=== PATIENT | male | born 1945 | race Caucasian/White ===

== ENCOUNTER 2017-04-23 14:54 | Inpatient (IN) | payer MEDICARE ==
[~2017-04-23] VITALS: Ht 182.9 cm; Wt 116.6 kg
[2017-04-23] MEDS ORDERED: TYLENOL325 MG PO (17:18)
[2017-04-23] MEDS ORDERED: COSOPT OCUMETER10 ML OPHTHALMIC (17:21)
[2017-04-23] MEDS ORDERED: ENOXAPARIN40 MG/0.1 SUBQ (17:22)
[2017-04-23] MEDS ORDERED: IRON325 PO (17:23)
[2017-04-23] MEDS ORDERED: FOLIC ACID1 MG PO (17:23)
[2017-04-23] MEDS ORDERED: DUONEB 2.5-0.5 M3 ML INH (17:25)
[2017-04-23] MEDS ORDERED: XALATAN2.5 ML OPHTHALMIC (17:26)
[2017-04-23] MEDS ORDERED: PROTONIX40 M1 PO (17:26)
[2017-04-23 19:40] VITALS: BP 154/58
[2017-04-24 04:31] LABS: HEMATOCRIT 22.2 % (42.0-52.0); HEMOGLOBIN 7.3 gm/dL (14.0-18.0); MCH 26.1 pg (26.0-34.0); MCHC 32.8 g/dL (28.0-37.0); MCV 79.7 fL (80.0-100.0); MPV 8.9 fl. (7.2-11.1); RBC 2.78 mil/uL (4.50-6.00); RDW-CV 19.9 % (10.5-14.5); WBC 3.2 thou/uL (4.0-11.0)
[2017-04-24 04:44] LABS: ALBUMIN 2.3 g/dL (3.4-5.0); CALCIUM 8.4 mg/dL (8.5-10.1); CREATININE 1.3 mg/dL (0.6-1.3); POTASSIUM 3.6 mmol/L (3.5-5.1); TOTAL BILIRUBIN 0.3 mg/dL (<0.1-1.0); TOTAL PROTEIN 6.4 g/dL (6.4-8.2)
[2017-04-24 07:53] VITALS: BP 136/44
[2017-04-24 20:23] VITALS: BP 149/45
[2017-04-25 05:23] LABS: HEMATOCRIT 21.7 % (42.0-52.0); HEMOGLOBIN 7.1 gm/dL (14.0-18.0); MCH 26.3 pg (26.0-34.0); MCHC 32.7 g/dL (28.0-37.0); MCV 80.2 fL (80.0-100.0); MPV 9.1 fl. (7.2-11.1); RBC 2.71 mil/uL (4.50-6.00); RDW-CV 20.5 % (10.5-14.5); WBC 3.4 thou/uL (4.0-11.0)
[2017-04-25 05:37] LABS: CALCIUM 8.4 mg/dL (8.5-10.1); CREATININE 1.3 mg/dL (0.6-1.3); MAGNESIUM 1.7 mg/dL (1.8-2.4); POTASSIUM 3.7 mmol/L (3.5-5.1)
[2017-04-25 07:35] VITALS: BP 128/52
[2017-04-25 20:12] VITALS: BP 133/94
[2017-04-25 22:15] VITALS: BP 124/44; BP 129/48; BP 137/41; BP 158/44
[2017-04-26 07:30] VITALS: BP 130/44
[2017-04-26 14:43] LABS: ABSOLUTE EOSINOPHILS 0.2 thou/uL (0.0-0.7); ABSOLUTE LYMPHOCYTES 1.2 thou/uL (0.8-5.3); ABSOLUTE MONOCYTES 0.4 thou/uL (0.0-1.2); ABSOLUTE NEUTROPHILS 2.9 thou/uL (1.6-8.1); BASOPHILS 0.7 %; EOSINOPHILS 4.8 %; HEMATOCRIT 29.4 % (42.0-52.0); LYMPHOCYTES 24.4 %; MCH 26.5 pg (26.0-34.0); MCHC 32.6 g/dL (28.0-37.0); MCV 81.3 fL (80.0-100.0); MONOCYTES 7.5 %; MPV 8.8 fl. (7.2-11.1); NUCLEATED RBCS 0 /100WBC; POLYS 62.6 %; RBC 3.61 mil/uL (4.50-6.00); RDW-CV 20.4 % (10.5-14.5); WBC 4.7 thou/uL (4.0-11.0)
[2017-04-26 14:44] LABS: HEMOGLOBIN 9.6 gm/dL (14.0-18.0)
[2017-04-26 14:45] LABS: PLATELET COUNT* 295 thou/uL (150-400)
[2017-04-26 14:58] LABS: CREATININE 1.5 mg/dL (0.6-1.3); POTASSIUM 4.4 mmol/L (3.5-5.1)
[2017-04-26 15:26] LABS: ANISOCYTOSIS 1+; OVALOCYTES Occasional
[2017-04-26 15:27] LABS: PLATELET ESTIMATE ADEQUATE
[2017-04-26 20:09] VITALS: BP 99/59
[2017-04-27 07:53] VITALS: BP 121/49
[2017-04-27 20:21] VITALS: BP 132/60; BP 77/43
[2017-04-28 04:05] LABS: HEMATOCRIT 26.7 % (42.0-52.0); MCH 27.3 pg (26.0-34.0); MCHC 33.5 g/dL (28.0-37.0); MCV 81.6 fL (80.0-100.0); RBC 3.28 mil/uL (4.50-6.00); RDW-CV 20.8 % (10.5-14.5); WBC 4.3 thou/uL (4.0-11.0)
[2017-04-28 04:10] LABS: CALCIUM 8.6 mg/dL (8.5-10.1); CREATININE 1.5 mg/dL (0.6-1.3); POTASSIUM 3.9 mmol/L (3.5-5.1)
[2017-04-28 08:53] VITALS: BP 123/45
[2017-04-28 19:30] VITALS: BP 132/55
[2017-04-28 20:00] VITALS: BP 132/55
[2017-04-28 21:38] LABS: INFLUENZA A ANTIGEN None Detected (None Detect); INFLUENZA B ANTIGEN None Detected (None Detect)
[2017-04-28 23:45] LABS: URINE BILIRUBIN NEGATIVE (Negative); URINE BLOOD NEGATIVE (Negative); URINE CLARITY CLEAR; URINE COLOR YELLOW; URINE GLUCOSE-RANDOM NEGATIVE (Negative); URINE KETONES NEGATIVE (Negative); URINE LEUKOCYTES-REFLEX NEGATIVE (Negative); URINE NITRITE-REFLEX NEGATIVE (Negative); URINE PROTEIN 1+ (Negative); URINE UROBILINOGEN 0.2 E.U./dl (0.2-1.0)
[2017-04-29 07:41] VITALS: BP 115/53
[2017-04-29 20:04] VITALS: BP 110/41
[2017-04-30 04:01] LABS: HEMATOCRIT 25.6 % (42.0-52.0); HEMOGLOBIN 8.4 gm/dL (14.0-18.0); MCH 26.7 pg (26.0-34.0); MCHC 32.7 g/dL (28.0-37.0); MCV 81.8 fL (80.0-100.0); MPV 8.7 fl. (7.2-11.1); NUCLEATED RBCS 0 /100WBC; PLATELET COUNT* 212 thou/uL (150-400); RBC 3.13 mil/uL (4.50-6.00); RDW-CV 21.3 % (10.5-14.5); WBC 3.9 thou/uL (4.0-11.0)
[2017-04-30 04:14] LABS: CALCIUM 8.4 mg/dL (8.5-10.1); CREATININE 1.7 mg/dL (0.6-1.3); POTASSIUM 3.8 mmol/L (3.5-5.1)
[2017-04-30 06:39] LABS: ABSOLUTE EOSINOPHILS 0.2 thou/uL (0.0-0.7); ABSOLUTE LYMPHOCYTES 1.1 thou/uL (0.8-5.3); ABSOLUTE MONOCYTES 0.3 thou/uL (0.0-1.2); ABSOLUTE NEUTROPHILS 2.3 thou/uL (1.6-8.1); ANISOCYTOSIS 2+; ATYPICAL LYMPHS 2 %; PLATELET ESTIMATE ADEQUATE
[2017-04-30 07:50] VITALS: BP 121/96
[2017-05-01 04:32] LABS: ABSOLUTE EOSINOPHILS 0.1 thou/uL (0.0-0.7); ABSOLUTE LYMPHOCYTES 1.3 thou/uL (0.8-5.3); ABSOLUTE MONOCYTES 0.6 thou/uL (0.0-1.2); ABSOLUTE NEUTROPHILS 2.2 thou/uL (1.6-8.1); BASOPHILS 0.5 %; EOSINOPHILS 2.3 %; HEMOGLOBIN 8.3 gm/dL (14.0-18.0); LYMPHOCYTES 31.3 %; MCH 26.9 pg (26.0-34.0); MCHC 33.1 g/dL (28.0-37.0); MCV 81.4 fL (80.0-100.0); MONOCYTES 13.9 %; MPV 9.2 fl. (7.2-11.1); NUCLEATED RBCS 0 /100WBC; PLATELET COUNT* 184 thou/uL (150-400); RBC 3.07 mil/uL (4.50-6.00); RDW-CV 20.8 % (10.5-14.5); WBC 4.2 thou/uL (4.0-11.0)
[2017-05-01 05:05] LABS: CALCIUM 8.3 mg/dL (8.5-10.1); CREATININE 1.6 mg/dL (0.6-1.3); POTASSIUM 3.7 mmol/L (3.5-5.1)
[2017-05-01 07:50] LABS: OVALOCYTES 1+
[2017-05-01 07:51] LABS: ANISOCYTOSIS 2+; HYPOCHROMASIA 2+; PLATELET ESTIMATE DECREASED; POIKILOCYTOSIS 2+; TEARDROPS 1+
[2017-05-01 08:31] VITALS: BP 113/39
[2017-05-01 20:00] VITALS: BP 119/51
[2017-05-02 05:10] LABS: ABSOLUTE EOSINOPHILS 0.1 thou/uL (0.0-0.7); ABSOLUTE LYMPHOCYTES 1.1 thou/uL (0.8-5.3); ABSOLUTE MONOCYTES 0.5 thou/uL (0.0-1.2); ABSOLUTE NEUTROPHILS 2.3 thou/uL (1.6-8.1); BASOPHILS 0.7 %; EOSINOPHILS 2.6 %; HEMATOCRIT 26.4 % (42.0-52.0); HEMOGLOBIN 8.6 gm/dL (14.0-18.0); LYMPHOCYTES 26.5 %; MCH 26.7 pg (26.0-34.0); MCHC 32.4 g/dL (28.0-37.0); MCV 82.3 fL (80.0-100.0); MONOCYTES 12.4 %; MPV 9.5 fl. (7.2-11.1); NUCLEATED RBCS 0 /100WBC; PLATELET COUNT* 172 thou/uL (150-400); POLYS 57.8 %; RBC 3.21 mil/uL (4.50-6.00); RDW-CV 20.9 % (10.5-14.5)
[2017-05-02 07:41] VITALS: BP 117/51
[2017-05-02 19:57] VITALS: BP 125/59
[2017-05-03 07:30] VITALS: BP 119/54
[2017-05-03] MEDS ORDERED: KEFLEX500 M1 PO (12:42)
[2017-05-03] MEDS ORDERED: COLACE100 MG PO (12:43)
[2017-05-03] MEDS ORDERED: BENGAY GREASELE57 GM TOP (12:50)
[2017-05-03 13:04] VITALS: BP 119/54
--- NOTE | 2017-05-19 13:45 | H ---
[address] [address] HISTORY AND PHYSICAL Name: KIARAMJ PALOMO Room: [address] M.R.#: [id number] Admission: 04/23/17 Attend Phys: Yelena Gatica, Discharge: 05/03/17 Date of : 49 Report #: [id number] THIS REPORT FOR: //name// CC: Gregory Gatica DATE OF SERVICE: 04/23/2017 HISTORY OF PRESENT ILLNESS: This is a 71-year-old male admitted to inpatient rehabilitation to facilitate safe discharge home, status post admission to [facility] on 04/10/2017 for a history of colon cancer, status post sigmoidectomy with significant debility and alterations in activities of daily living requiring acute inpatient rehabilitation. He was significantly anemic with a hemoglobin of 7.4, folate 1.7, platelet 279. Previous level of function was independent to modified independent with activities of daily living. Current level of function is minimum to moderate assistance of 1-2 depending on therapies, activities and time of day. Estimated length of stay is 10-12 days with discharge disposition to the home setting where he will discharge with spouse who can provide assistance in the home with home health PT, OT and nursing. PAST MEDICAL HISTORY: Hypertension, glaucoma, acute kidney injury, anemia, hemoglobin 7.4, obesity, chronic kidney disease, esophagitis. PAST SURGICAL HISTORY: Cholecystectomy, ERCP, sigmoidectomy. ALLERGIES: No known drug allergies. MEDICATIONS: Reviewed and reconciled by myself and are available in the MAR. REVIEW OF SYSTEMS: A 14-point review of systems is done and is negative except as mentioned in HPI. Specifically, no fever, chest pain, shortness of breath, abdominal pain or distention. PHYSICAL EXAMINATION: GENERAL: The patient is up in the chair, alert, oriented, in no apparent distress. VITAL SIGNS: Reviewed and are stable. HEENT: Head is atraumatic, normocephalic. Pupils are equal, round, reactive. There is no family available at the bedside. SKIN: Warm and dry. No rashes or lesions noted. MUSCULOSKELETAL: No clubbing, cyanosis or edema. ASSESSMENT: 1. Significant medical comorbidities post acute hospitalization requiring physical therapy, occupational therapy and speech [place] [address] HISTORY AND PHYSICAL Name: MJ CRAIG Room: [address] IN [facility].#: [id number] Admission: 04/23/17 Attend Phys: Yelena Gatica DO Discharge: 05/03/17 Date of : 49 Report #: [id number] 2. PT, OT, speech, language pathology and HIMS to evaluate and make recommendations. 3. Plan of care is pending. 4. We will team him weekly, make changes to the plan of care as needed. <ELECTRONICALLY SIGNED> By: Yelena Gatica DO 05/19/17 1345 [id number] liliana Lin
--- NOTE | 2017-06-08 14:42 | D ---
[facility] [address] [place] [address] DISCHARGE SUMMARY Name: MJ CRAIG Room: [address] M.R.#: [id number] Admission: 04/23/17 Attend Phys: Yelena Gatica, DO Discharge: 05/03/17 Date of : 49 Report #: [id number] THIS REPORT FOR: //name// CC: Gregory Gatica DATE OF SERVICE: 05/03/2017 DISCHARGE DIAGNOSES: Status post sigmoidectomy, significant debility and alterations in activities of daily living, who did discharge at a modified independent level of care to the home setting with outpatient physical therapy and outpatient occupational therapy. He will follow with his primary care physician within 1 week and his surgeon within 1-2 weeks. Notifications for physician were given. Regular diet, colostomy change as previously practiced. Limitations include fall precautions. Medications were reviewed, reconciled by myself and are available in the MAR. The patient will also follow up with surgeon. The patient progressed well in physical and occupational therapies. DISCHARGE PHYSICAL EXAMINATION: GENERAL: Alert, oriented, no apparent distress. VITAL SIGNS: Reviewed and are stable. HEENT: Head atraumatic, normocephalic. Pupils equal, round, reactive. ABDOMEN: Soft, nontender, nondistended. NEUROLOGIC: Cranial nerves 2-12 are grossly intact with no focal neuro deficits, 5/5 strength in the bilateral upper and lower extremities. SKIN: Warm and dry. ABDOMEN: Obese, soft, nontender. Left-sided colostomy is noted. <ELECTRONICALLY SIGNED> By: Yelena Gatica DO 06/08/17 [id number] Gatica DO /nt
== END 2017-05-03 17:45 | disposition home or self-care (01) | DRG 375 ==
LOC: M.REH 14:54
PROVIDERS: Family Medicine; Internal Medicine; ADMIT Physical Medicine & Rehabilitation
PROC: 30233N1 Transfusion of Nonautologous Red Blood Cells into Peripheral Vein, Percutaneous Approach (ICD-10-PCS; principal; 2017-04-25)
DX: C18.7 Malignant neoplasm of sigmoid colon (principal); N17.9 Acute kidney failure, unspecified; K92.2 Gastrointestinal hemorrhage, unspecified; R53.81 Other malaise; I12.9 Hypertensive chronic kidney disease with stage 1 through stage 4 chronic kidney disease, or unspecified chronic kidney disease; N18.3 Chronic kidney disease, stage 3 (moderate); D64.9 Anemia, unspecified; E66.01 Morbid (severe) obesity due to excess calories; Z68.34 Body mass index [BMI] 34.0-34.9, adult; Z90.49 Acquired absence of other specified parts of digestive tract; Z79.899 Other long term (current) drug therapy; Z82.49 Family history of ischemic heart disease and other diseases of the circulatory system